=== PATIENT | female | born 1960 | race Caucasian/White ===

== ENCOUNTER → 2020-06-08 | Outpatient (CLI) | payer OTHER ==
[~2020-06-08] MED LIST: CELEBREX 200 M200 M1; CELEBREX 200 M200 M1 PO; CLIMARA 0.061 PATCH TD; CLIMARA PRO PA1 EACH TRANSDERM; LOPRESSOR25 PO; PERCOCET 5-3251 EACH PO; TRAMADOL 50 MG50 MG PO; VAGIFEM10 MCG VG; VITAMIN C120 GM PO; WELLBUTRIN 100100 MG PO
== END ==
LOC: CAT 10:38
PROVIDERS: ATTEND Family Medicine
DX: Z13.6 Encounter for screening for cardiovascular disorders (principal); E78.00 Pure hypercholesterolemia, unspecified; I25.10 Atherosclerotic heart disease of native coronary artery without angina pectoris